=== PATIENT | male | born 1940 | race Two or more races ===

== ENCOUNTER → 2021-10-15 | Emergency (ER) | payer BC, MEDICAID ==
[~2021-10-15] VITALS: Ht 185.4 cm; Wt 50.0 kg
[~2021-10-15] MED LIST: BACITRACIN TOP OINT 1 UD PKG TOP ONE; LIDOCAINE 1% (LOCAL ANESTH.) PF 5ml SDV ID ONE
[2021-10-15 22:28] VITALS: BP 125/67
== END | disposition home or self-care (01) ==
LOC: EDBD 18:33 → ER 18:33
DX: S01.81XA Laceration without foreign body of other part of head, initial encounter (principal); I10 Essential (primary) hypertension; Z86.73 Personal history of transient ischemic attack (TIA), and cerebral infarction without residual deficits; W18.11XA Fall from or off toilet without subsequent striking against object, initial encounter; Y93.01 Activity, walking, marching and hiking; Y92.89 Other specified places as the place of occurrence of the external cause; Y99.8 Other external cause status
CPT/HCPCS: 12013; 70450; 72125; 93005

== ENCOUNTER 2021-11-06 17:43 | Inpatient (IN) | payer OTHER, BC, MEDICAID ==
[~2021-11-06] VITALS: Ht 170.2 cm; Wt 44.5 kg
[2021-11-06 20:14] LABS: Basophils # (auto) 0 10 ^3/uL (0-0.2); Basophils % (auto) 0.5 % (0.0-2.0); Eosinophils # (auto) 0 10 ^3/uL (0-0.8); Eosinophils % (auto) 0.2 % (0.0-7.0); Hematocrit 36.8 % (41.0-53.0); Hemoglobin 12.2 g/dL (13.5-17.5); Lymphocytes # (auto) 1.1 10 ^3/uL (0.4-5.4); Mean Corpuscular Hemoglobin 28.4 pg (28.0-32.0); Mean Corpuscular Hgb Conc. 33.2 g/dL (32.0-36.0); Mean Corpuscular Volume 85.4 fL (80.0-100.0); Monocytes # (auto) 0.6 10 ^3/uL (0-1.3); Monocytes % (auto) 5.9 % (0.0-12.0); Neutrophils # (auto) 8.5 10 ^3/uL (1.6-8.6); Neutrophils % (auto) 82.4 % (37.0-80.0); Red Blood Cells 4.31 10^6/uL (4.5-5.90); Red Cell Distribution Width 16.1 % (11.8-14.3); White Blood Cell 10.3 10^3/uL (4.4-10.8)
[2021-11-06 20:33] LABS: Lactic Acid w/Reflex 2.2 mmol/L (0.4-2.0)
[2021-11-06 20:41] LABS: BUN/Creatinine Ratio 12.5; Calcium 8.7 mg/dL (8.5-10.1); Magnesium 2.2 mg/dL (1.6-2.6); Potassium 4.9 mmol/L (3.5-5.1)
[2021-11-06 20:44] LABS: Bilirubin, Total 0.6 mg/dL (0.2-1.0); Total Protein 7.1 g/dL (6.4-8.2)
[2021-11-07] MEDS ORDERED: SODIUM CHLORIDE 0.9% 1,000 ML IV ONE (00:15)
[2021-11-07] MEDS ORDERED: ASPirin 325 MG TAB PO ONE (00:15)
[2021-11-07] MEDS ORDERED: HYDROcodone-ACET 5/325MG TAB PO PRN (00:45)
[2021-11-07] MEDS ORDERED: NITROGLYCERIN 0.4 MG SL TAB SL PRN (00:45)
[2021-11-07] MEDS ORDERED: ACETAMINOPHEN 325 MG TAB PO PRN (00:45)
[2021-11-07] MEDS ORDERED: hydrALAZINE HCL 10 MG TAB PO PRN (00:45)
[2021-11-07] MEDS ORDERED: MORPHINE SULFATE INJ 2 MG/ml SYRG IV PRN (00:45)
[2021-11-07] MEDS ORDERED: ONDANSETRON HCL 4 MG/2 ML VIAL IV PRN (00:45)
[2021-11-07] MEDS ORDERED: ASPirin 300 MG RECTAL SUPP PR ONE (01:00)
[2021-11-07] MEDS: ASPirin-EC 81 mg tab PO SCH (07:45)
[2021-11-07] MEDS: PANTOPRAZOLE 40 MG/10 ML VIAL INJ IV SCH (09:39)
[2021-11-07] MEDS ORDERED: cefTRIAXone 1GM/50ML D5W 50 ML IV ONE (18:15)
[2021-11-07] MEDS ORDERED: MIDAZOLAM HCL 2MG/2ML 2ml VIAL (1mg/ml) IV PRN (20:15)
[2021-11-07 21:50] VITALS: BP 147/77
[2021-11-07 22:00] VITALS: BP 147/77
[2021-11-07] MEDS: levETIRAcetam 500 MG TAB PO SCH (22:00)
[2021-11-07] MEDS ORDERED: ATORVASTATIN 20 MG TAB PO SCH (22:00)
[2021-11-07] MEDS ORDERED: DIGO0.12 PO (22:44)
[2021-11-07] MEDS ORDERED: LORA0.5T20 PO (22:44)
[2021-11-07] MEDS ORDERED: METO25TA5 PO (22:44)
[2021-11-07] MEDS ORDERED: PROM25TA5 PO (22:44)
[2021-11-08 00:47] LABS: Cholesterol 178 mg/dL (< 200); HDL Cholesterol 69 mg/dL (40-59); LDL Cholesterol 108 mg/dL (< 100); Triglycerides 66 mg/dL (< 150)
[2021-11-08 05:00] VITALS: BP 142/77
[2021-11-08 07:15] LABS: Basophils # (auto) 0 10 ^3/uL (0-0.2); Basophils % (auto) 0.7 % (0.0-2.0); Eosinophils # (auto) 0.1 10 ^3/uL (0-0.8); Eosinophils % (auto) 1.3 % (0.0-7.0); Hematocrit 35.8 % (41.0-53.0); Hemoglobin 12.2 g/dL (13.5-17.5); Mean Corpuscular Hemoglobin 28.9 pg (28.0-32.0); Mean Corpuscular Volume 84.8 fL (80.0-100.0); Monocytes # (auto) 0.4 10 ^3/uL (0-1.3); Monocytes % (auto) 6.6 % (0.0-12.0); Neutrophils # (auto) 3.5 10 ^3/uL (1.6-8.6); Neutrophils % (auto) 57.4 % (37.0-80.0); Nucleated Red Blood Cells % 0.1 %; Red Blood Cells 4.22 10^6/uL (4.5-5.90); Red Cell Distribution Width 15.9 % (11.8-14.3)
[2021-11-08 07:46] LABS: BUN/Creatinine Ratio 13.6; Calcium 8.8 mg/dL (8.5-10.1); Potassium 4.3 mmol/L (3.5-5.1)
[2021-11-08 08:00] VITALS: BP 115/66
[2021-11-08] MEDS ORDERED: cefTRIAXone 1GM/50ML D5W 50 ML IV SCH (09:00)
[2021-11-08] MEDS: levETIRAcetam 500 MG TAB PO SCH (09:27)
[2021-11-08] MEDS: ASPirin-EC 81 mg tab PO SCH (09:27)
[2021-11-08] MEDS: PANTOPRAZOLE 40 MG/10 ML VIAL INJ IV SCH (09:28)
[2021-11-08 12:00] VITALS: BP 122/68
[2021-11-08] MEDS ORDERED: ASPI-543 PO (12:57)
[2021-11-08] MEDS ORDERED: ATOR20TA50 PO (12:57)
[2021-11-08] MEDS ORDERED: METO25TA5 PO (12:57)
[2021-11-08] MEDS ORDERED: KEP500T PO (12:57)
[2021-11-08 15:44] VITALS: BP 173/84
[2021-11-08 16:00] VITALS: BP 120/71
== END 2021-11-08 19:50 | disposition hospice, home (50) | DRG 101 ==
LOC: ER 17:43 → EDBD 17:43 → EDUNIT# 17:43 → TELE 11-07 01:13 → TELE-CENTR 11-07 21:35
PROVIDERS: ADMIT Nurse Practitioner Family; ATTEND Hospitalist
DX: G40.909 Epilepsy, unspecified, not intractable, without status epilepticus (principal); I10 Essential (primary) hypertension; I48.91 Unspecified atrial fibrillation; R55 Syncope and collapse; R77.8 Other specified abnormalities of plasma proteins; R79.89 Other specified abnormal findings of blood chemistry; Z20.822 Contact with and (suspected) exposure to COVID-19; F03.90 Unspecified dementia, unspecified severity, without behavioral disturbance, psychotic disturbance, mood disturbance, and anxiety; Z91.81 History of falling; Z79.899 Other long term (current) drug therapy; Z86.73 Personal history of transient ischemic attack (TIA), and cerebral infarction without residual deficits
CPT/HCPCS: 36415; 70450; 70551; 71045; 80048; 80053; 80061; 82607; 82746; 83605; 83735; 84443; 84484; 85025; 87040; 87081; 92610; 93005; 93306; 93886; 96361; 96365; 96375; 97163; 99291; C9113; G0378; J0696